=== PATIENT | male | born 2005 | race Hispanic/Latino ===

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

== ENCOUNTER 2023-01-21 13:28 | Emergency (ER) | payer SELFPAY ==
[2023-01-21 14:34] LABS: SARS-COV-2 RT PCR NEGATIVE (NEGATIVE)
--- NOTE | 2023-01-21 15:32 | ER ---
Nurse's Notes [facility] Name: Marquis Felton Jr Age: 17 yrs Sex: Male : 2005 Arrival Date: 01/21/2023 Time: 13:30 Bed 5 Private MD: Diagnosis: Acute pharyngitis, unspecified Presentation: 01/21 13:45 Chief complaint: Patient states: intermittent lightheadedness and body feeling hot that ss began "a couple of days ago.". Coronavirus screen: Client denies travel out of the [place] in the last 14 days. Ebola Screen: Patient denies exposure to infectious person. Patient denies travel to an Ebola-affected area in the 21 days before illness onset. Initial Sepsis Screen: Does the patient meet any 2 criteria? No. Patient's initial sepsis screen is negative. Does the patient have a suspected source of infection? No. Patient's initial sepsis screen is negative. Risk Assessment: Do you want to hurt yourself or someone else? Patient reports no desire to harm self or others. Onset of symptoms was January 18, 2023. 13:45 Method Of Arrival: Ambulatory ss 13:45 Acuity: CONCHITA 3 ss Historical: - Allergies: 13:46 No Known Allergies; ss - Home Meds: 13:46 None [Active]; ss - PMHx: 13:46 None; ss - PSHx: 13:46 None; ss - Immunization history:: Client reports having NOT received the Covid vaccine. - Social history:: Smoking status: Patient denies any tobacco usage or history of. Screenin:40 [facility] ED Fall Risk Assessment (Adult) Score/Fall Risk Level 0 - 2 = Low Risk ll1 Oriented to surroundings, Maintained a safe environment, Educated pt \\T\\ family on fall prevention, incl call for assistance when getting out of bed, Hourly rounding (assess needs \\T\\ fall precautionary measures) done. Abuse screen: Denies threats or abuse. Nutritional screening: No deficits noted. Tuberculosis screening: No symptoms or risk factors identified. Assessment: 13:46 General: Appears in no apparent distress. comfortable, Behavior is calm, cooperative, kc6 appropriate for age. Pain: Denies pain. Neuro: Pate Agitation-Sedation Scale (RASS): 0 - Alert and Calm Level of Consciousness is awake, alert, obeys commands, Oriented to person, place, time, situation, Appropriate for age Reports dizziness, lightheadedness. Cardiovascular: Capillary refill < 3 seconds. Respiratory: Airway is patent Trachea midline Respiratory effort is even, unlabored, Respiratory pattern is regular, symmetrical. GI: No signs and/or symptoms were reported involving the gastrointestinal system. : No signs and/or symptoms were reported regarding the genitourinary system. EENT: No signs and/or symptoms were reported regarding the EENT system. Derm: No signs and/or symptoms reported regarding the dermatologic system. Skin is intact, Skin is pink, warm \\T\\ dry. Musculoskeletal: No signs and/or symptoms reported regarding the musculoskeletal system. Circulation, motion, and sensation intact. Capillary refill < 3 seconds, Range of motion: intact in all extremities. 14:33 Reassessment: Patient appears in no apparent distress at this time. No changes from kc6 previously documented assessment. Patient and/or family updated on plan of care and expected duration. Pain level reassessed. Patient is alert, oriented x 3, equal unlabored respirations, skin warm/dry/pink. 15:25 Reassessment: Patient appears in no apparent distress at this time. No changes from kc6 previously documented assessment. Patient and/or family updated on plan of care and expected duration. Pain level reassessed. Patient is alert, oriented x 3, equal unlabored respirations, skin warm/dry/pink. Vital Signs: 13:45 BP 129 / 73; Pulse 70; Resp 15; Temp 97.9(TE); Pulse Ox 100% on R/A; Weight 99.79 kg; Height 5 ft. 5 in. (165.10 cm); 14:33 BP 122 / 71; Pulse 69; Resp 18 S; Pulse Ox 98% on R/A; kc6 15:25 BP 107 / 60; Pulse 69; Resp 19 S; Pulse Ox 99% on R/A; kc6 13:45 Body Mass Index 36.61 (99.79 kg, 165.10 cm) ED Course: 13:30 Patient arrived in ED. mr 13:32 Fredy Coulter PA is PHCP. jmm 13:33 Adonis Tsai MD is Attending Physician. jmm 13:39 Guerita Ordaz RN is Primary Nurse. ll1 13:40 Arm band placed on Patient placed in an exam room, on a stretcher. ll1 13:43 Kaitlin Hernandez, RN is Primary Nurse. kc6 13:46 Triage completed. ss 13:46 Patient has correct armband on for positive identification. Bed in low position. Call kc6 light in reach. Side rails up X 1. 13:51 Strep Sent. tm3 13:51 COVID-19/FLU A+B Sent. tm3 14:51 EKG done, by ED staff. tm3 15:55 No provider procedures requiring assistance completed. Patient did not have IV access kc6 during this emergency room visit. Administered Medications: No medications were administered Medication: 15:55 VIS not applicable for this client. kc6 Outcome: 15:31 Discharge ordered by . ivan 15:55 Discharged to home ambulatory. kc6 15:55 Condition: stable 15:55 Discharge instructions given to patient, Instructed on discharge instructions, follow up and referral plans. medication usage, Demonstrated understanding of instructions, follow-up care, medications, Prescriptions given X 1. 15:56 Patient left the ED. kc6 Signatures: Demian Jenkins tm3 Fredy Coulter PA PA jmm Rivera, Mary Shelby Hernandez, RN RN ss Guerita Ordaz RN RN ll1 Kaitlin Hernandez, RN RN kc6
--- NOTE | 2023-01-21 15:32 | EDPHYS ---
Physician Documentation [facility] Name: Marquis Felton Jr Age: 17 yrs Sex: Male : 2005 Arrival Date: 01/21/2023 Time: 13:30 Bed 5 Private MD: ED Physician Adonis Tsai HPI: 01/21 13:40 This 17 yrs old Male presents to ER via Ambulatory with complaints of m Dizziness. 13:40 Is a 17-year-old male with no chronic medical conditions presents emerged department jm with complaints of sore throat, fatigue, lightheadedness beginning today. Complains of generalized body aches. Denies vomiting, abdominal pain, chest pain, shortness of breath. Historical: - Allergies: 13:46 No Known Allergies; ss - Home Meds: 13:46 None [Active]; ss - PMHx: 13:46 None; ss - PSHx: 13:46 None; ss - Immunization history:: Client reports having NOT received the Covid vaccine. - Social history:: Smoking status: Patient denies any tobacco usage or history of. ROS: 13:40 Constitutional: Positive for body aches. jmm 13:40 ENT: Positive for sore throat. 13:40 All other systems are negative. Exam: 13:40 Constitutional: This is a well developed, well nourished patient who is awake, alert, jmm and in no acute distress. Head/Face: atraumatic. Eyes: EOMI, no conjunctival erythema appreciated 13:40 Neck: Trachea midline, Supple Chest/axilla: Normal chest wall appearance and motion. Cardiovascular: Regular rate and rhythm. No edema appreciated Respiratory: Normal respirations, no respiratory distress appreciated Abdomen/GI: Non distended Back: Normal ROM Skin: General appearance color normal MS/ Extremity: Moves all extremities, no obvious deformities appreciated, no edema noted to the lower extremities Neuro: Awake and alert Psych: Behavior is normal, Mood is normal, Patient is cooperative and pleasant 13:40 ENT: Posterior pharynx: erythema, that is mild. Vital Signs: 13:45 BP 129 / 73; Pulse 70; Resp 15; Temp 97.9(TE); Pulse Ox 100% on R/A; Weight 99.79 kg; ss Height 5 ft. 5 in. (165.10 cm); 14:33 BP 122 / 71; Pulse 69; Resp 18 S; Pulse Ox 98% on R/A; kc6 15:25 BP 107 / 60; Pulse 69; Resp 19 S; Pulse Ox 99% on R/A; kc6 13:45 Body Mass Index 36.61 (99.79 kg, 165.10 cm) ss MDM: 13:40 Patient medically screened. [facility] 15:29 Differential diagnosis: acute pharyngitis. Data reviewed: vital signs, nurses notes. [facility] 19:13 Counseling: I had a detailed discussion with the patient and/or guardian regarding: the [facility] historical points, exam findings, and any diagnostic results supporting the discharge/admit diagnosis, lab results, the need for outpatient follow up, to return to the emergency department if symptoms worsen or persist or if there are any questions or concerns that arise at home. 01/21 13:44 Order name: COVID-19/FLU A+B; Complete Time: 14:36 [facility] 01/21 13:44 Order name: Strep; Complete Time: 14:13 [facility] 01/21 14:08 Order name: Throat Culture [facility] 01/21 14:37 Order name: EKG - Nurse/Tech; Complete Time: 14:46 [facility] Administered Medications: No medications were administered Disposition: 16:31 Co-signature as Attending Physician, Adonis Tsai MD. rn Disposition Summary: 01/21/23 15:31 Discharge Ordered Location: Home [facility] Condition: Stable [facility] Diagnosis - Acute pharyngitis, unspecified [facility] Followup: [facility] - With: Private Physician - When: 2 - 3 days - Reason: Recheck today's complaints, Continuance of care, Re-evaluation by your physician Discharge Instructions: - Discharge Summary Sheet [facility] - Pharyngitis [facility] Forms: - Work release form [facility] - Medication Reconciliation Form [facility] - Thank You Letter [facility] - Antibiotic Education [facility] - Prescription Opioid Use [facility] Prescriptions: - Amoxicillin 875 mg Oral Tablet - take 1 tablet by ORAL route every 12 hours for 10 days; 20 tablet; Refills: 0, [facility] Product Selection Permitted Signatures: Dispatcher [employer] [facility] Fredy Coulter PA PA [facility] Adonis Tsai MD MD rn Smirch, Shelby, RN RN ss
[2023-01-21 15:59] VITALS: TEMP 97.9
[2023-01-21 16:02] VITALS: BP 107/60; O2SAT 99
--- NOTE | 2023-01-22 11:16 | EKG ---
Test Date: 2023-01-21 Test Time: 14:49:25 [place] Supervisor: TM MEASUREMENT RESULTS: Intervals: Rate: 64 RI: 140 QRSD: 80 QT: 374 QTc: 385 Mamou: P: 47 RI: 140 QRS: 34 T: -3 INTERPRETIVE STATEMENTS: Normal sinus rhythm Possible Inferior infarct, age undetermined Abnormal ECG No previous ECG available for comparison Electronically Signed On 01-22-23 11:15:05 ANALYTICAL LAB ANALYST by Cristóbal Grover
== END 2023-01-21 15:56 | disposition home or self-care (01) ==
LOC: ER 13:28
DX: J02.9 Acute pharyngitis, unspecified (principal)
CPT/HCPCS: 0240U; 87070; 87081; 93005

== ENCOUNTER 2023-10-22 17:32 | Emergency (ER) | payer SELFPAY ==
--- NOTE | 2023-10-22 18:45 | RAD REPORT ---
EXAM DESCRIPTION: CT - CTFBWCON CLINICAL HISTORY: FACIAL PAIN COMPARISON: No comparisons TECHNIQUE: Axial thin cut CT images of the face were obtained following intravenous administration o f 100 mL Isovue-300. Sagittal and coronal reconstruction images were generated and reviewed. All CT scans are performed using dose optimization technique as appropriate and may include automated exposure control or mA/KV adjustment according to patient size. FINDINGS: Asymmetric soft tissue swelling and fat stranding centered on the right lower jaw soft tis sues, extending deep to the superficial muscles of the face, and along the anterior margin of the mes enteric. Asymmetrically more pronounced right level 1 B lymph nodes, measuring up to 9 millimeter in short axis, likely reactive. No appreciable fluid collections or subperiosteal abscess. Unerupted posterior most right mandibular molar, without evidence of abnormal cortical defects or erosions of the mandible at that level. No green spicious periapical collections. No acute facial bone fracture is seen.The mandible is intact. Remainder of the soft tissues of the f leoncio are unremarkable. Infratemporal fossa and included intracranial structures and orbits are unremar kable. The globes and orbital contents are grossly unremarkable.The paranasal sinuses and mastoids are clear . IMPRESSION: Asymmetric soft tissue swelling and fat stranding adjacent to the right lower jaw buccal cortex, with mildly prominent right level 1 B lymph nodes, probably reactive. No appreciable fluid collections or subperiosteal abscess.
--- NOTE | 2023-10-22 18:55 | ER ---
Nurse's Notes [facility] Name: Marquis Felton Jr Age: 18 yrs Sex: Male : 2005 Arrival Date: 10/22/2023 Time: 17:32 Bed 12 Private MD: Diagnosis: Local infection of the skin and subcutaneous tissue, unspecified Presentation: 10/22 17:41 Chief complaint: Patient states: right jaw pain and swelling since Friday. Pt states "I aa5 can't really open my mouth because of my jaw and I haven't been able to eat much". Coronavirus screen: At this time, the client does not indicate any symptoms associated with coronavirus-19. Ebola Screen: Patient denies travel to an Ebola-affected area in the 21 days before illness onset. Initial Sepsis Screen: Does the patient meet any 2 criteria? No. Patient's initial sepsis screen is negative. Does the patient have a suspected source of infection? No. Patient's initial sepsis screen is negative. Risk Assessment: Do you want to hurt yourself or someone else? Patient reports no desire to harm self or others. Onset of symptoms was September 2023. 17:41 Acuity: CONCHITA 4 aa5 17:41 Method Of Arrival: Ambulatory aa5 Triage Assessment: 20:07 General: Appears in no apparent distress. comfortable, Behavior is calm, cooperative. cm10 Pain: Complains of pain in mouth. Neuro: No deficits noted. Level of Consciousness is awake, alert, obeys commands, Oriented to person, place, time, situation. Respiratory: No deficits noted. Airway is patent Respiratory effort is even, unlabored, Respiratory pattern is regular, symmetrical. Derm: No deficits noted. Skin is intact, Skin is pink, warm \\T\\ dry. Musculoskeletal: No deficits noted. No signs and/or symptoms reported regarding the musculoskeletal system. Range of motion: intact in all extremities. Historical: - Allergies: 17:41 No Known Allergies; aa5 - PMHx: 17:41 None; aa5 - PSHx: 17:41 None; aa5 - Immunization history:: Adult Immunizations unknown. - Social history:: Smoking status: Patient denies any tobacco usage or history of. Screenin:07 [facility] ED Fall Risk Assessment (Adult) History of falling in the last 3 months, cm10 including since admission No falls in past 3 months (0 pts) Confusion or Disorientation No (0 pts) Intoxicated or Sedated No (0 pts) Impaired Gait No (0 pts) Mobility Assist Device Used No (0 pt) Altered Elimination No (0 pt) Score/Fall Risk Level 0 - 2 = Low Risk Oriented to surroundings, Maintained a safe environment, Hourly rounding (assess needs \\T\\ fall precautionary measures) done. Abuse screen: Denies threats or abuse. Denies injuries from another. Nutritional screening: No deficits noted. Tuberculosis screening: No symptoms or risk factors identified. Assessment: 18:09 Reassessment: Patient and/or family updated on plan of care and expected duration. Pain ll1 level reassessed. Vital Signs: 17:41 BP 138 / 77; Pulse 78; Resp 16 S; Temp 98.2; Pulse Ox 100% on R/A; Weight 99.79 kg (R); aa5 Height 5 ft. 5 in. (R); 17:41 Body Mass Index 36.61 (99.79 kg, 165.1 cm) aa5 ED Course: 17:35 Patient arrived in ED. im 17:41 [facility]C [facility] kb 17:41 Jerry Kuhn MD is Attending Physician. kb 17:41 Triage completed. aa5 17:42 Arm band placed on. aa5 18:09 Inserted saline lock: 22 gauge in right antecubital area, using aseptic technique. ll1 18:16 Facial Bones W/ Con \\T\\ MPR CT In Process Unspecified. EDMS 19:13 Yenny Cali, RN is Primary Nurse. cm10 20:06 Patient has correct armband on for positive identification. Provided Education on: cm10 Follow-up process and procedures. . 20:06 No provider procedures requiring assistance completed. IV discontinued, intact, cm10 bleeding controlled, No redness/swelling at site. Pressure dressing applied. Administered Medications: 19:32 Drug: Rocephin IV 1 grams IV at calculated rate once; Given slow IV push per pharmacy cm10 instructions Route: IV; Rate: calculated rate; Site: right antecubital; 20:06 Follow up: Response: No adverse reaction; IV Status: Completed infusion; IV Intake: [id number] Medication: 20:08 VIS not applicable for this client. cm10 Intake: 20:06 IV: 50ml; Total: 50ml. cm10 Outcome: 18:55 Discharge ordered by . valentina 20:08 Discharged to home ambulatory, with family, cm10 20:08 Condition: good 20:08 Discharge instructions given to patient, Instructed on discharge instructions, follow up and referral plans. medication usage, Demonstrated understanding of instructions, follow-up care, medications, Prescriptions given X 1, 20:08 Patient left the ED. cm10 Signatures: Dispatcher [employer] EDMS Francesca Voss, ROYER-Michael LINTON-Miladys Salter, RN RN aa5 Guerita Ordaz RN RN ll1 Betsy Landry Clarissa, RN RN cm10 Corrections: (The following items were deleted from the chart) 17:43 17:41 Chief complaint: Patient states: right jaw pain and swelling. Pt states "I can't aa5 really open my mouth because of my jaw and I haven't been able to eat much" aa5
--- NOTE | 2023-10-22 18:55 | EDPHYS ---
Physician Documentation [facility] Name: Marquis Felton Jr Age: 18 yrs Sex: Male : 2005 Arrival Date: 10/22/2023 Time: 17:32 Bed 12 Private MD: ED Physician Jerry Kuhn HPI: 10/22 18:54 This 18 yrs old Male presents to ER via Ambulatory with complaints of Jaw Pain kb - swelling. 18:54 Patient is a 18-year-old male with no medical history presents for jaw pain on the kb right side for 4 days. Reports pain with opening mouth. Denies fever, toothache, nausea, vomiting, sore throat. Historical: - Allergies: 17:41 No Known Allergies; aa5 - PMHx: 17:41 None; aa5 - PSHx: 17:41 None; aa5 - Immunization history:: Adult Immunizations unknown. - Social history:: Smoking status: Patient denies any tobacco usage or history of. ROS: 18:51 Constitutional: Negative for fever, chills, and weight loss, kb 18:51 ENT: Positive for jaw pain, 18:51 All other systems are negative, Exam: 18:51 Constitutional: This is a well developed, well nourished patient who is awake, alert, kb and in no acute distress. Head/Face: Normocephalic, atraumatic. ENT: Moist Mucous membranes Cardiovascular: Regular rate Respiratory: Respirations even and unlabored. No increased work of breathing. Talking in full sentences Abdomen/GI: Soft, non-tender. No distention Skin: Warm, dry with normal turgor. Normal color. MS/ Extremity: Pulses equal, no cyanosis. Neurovascular intact. Full, normal range of motion. Neuro: Awake and alert, GCS 15, oriented to person, place, time, and situation. Moves all extremities. Normal gait. 18:51 ENT: pain upon palpation and movement of right mandible, no erythema, swelling, warmth or abscess appreciated. Vital Signs: 17:41 BP 138 / 77; Pulse 78; Resp 16 S; Temp 98.2; Pulse Ox 100% on R/A; Weight 99.79 kg (R); aa5 Height 5 ft. 5 in. (R); 17:41 Body Mass Index 36.61 (99.79 kg, 165.1 cm) aa5 MDM: 17:41 Patient medically screened. kb 18:52 Differential diagnosis: fracture, cellulitis, abscess. Data reviewed: vital signs, kb nurses notes. Counseling: I had a detailed discussion with the patient and/or guardian regarding the historical points, exam findings, and any diagnostic results supporting the discharge/admit diagnosis, radiology results, the need for outpatient follow up, a family practitioner, to return to the emergency department if symptoms worsen or persist or if there are any questions or concerns that arise at home. 10/22 17:46 Order name: Facial Bones W/ Con \T\ MPR CT; Complete Time: 18:49 kb 10/22 17:46 Order name: IV Start; Complete Time: 18:12 kb Administered Medications: 19:32 Drug: Rocephin IV 1 grams IV at calculated rate once; Given slow IV push per pharmacy cm10 instructions Route: IV; Rate: calculated rate; Site: right antecubital; 20:06 Follow up: Response: No adverse reaction; IV Status: Completed infusion; IV Intake: [id number] Disposition Summary: 10/22/23 18:55 Discharge Ordered Notes: Location: Home kb Condition: Stable kb Diagnosis - Local infection of the skin and subcutaneous tissue, unspecified kb Followup: kb - With: Emergency Department - When: As needed - Reason: Worsening of condition Followup: kb - With: Private Physician - When: 2 - 3 days - Reason: Recheck today's complaints, Continuance of care, Re-evaluation by your physician Discharge Instructions: - Discharge Summary Sheet kb - Cellulitis, Adult, [id number] kb Forms: - Medication Reconciliation Form kb - Thank You Letter kb - Antibiotic Education kb - Prescription Opioid Use kb - Patient Portal Instructions kb - Leadership Thank You Letter kb Prescriptions: - Augmentin 875-125 mg Oral Tablet - take 1 tablet ORAL route every 12 hours for 10 days; 20 tablet; Refills: 0, kb Product Selection Permitted Signatures: Dispatcher [employer] Francesca Jalloh FNP-C FNP-Ckb Calderon, Audri, RN RN aa5 Yenny Cali RN RN cm10
[2023-10-22] MEDS ORDERED: CEFTRIAXONE 1000 MG/VIAL ONE (19:41)
[2023-10-22] MEDS ORDERED: NA CHLORIDE 0.9% 50 ML ONE (19:41)
[2023-10-22 20:21] VITALS: BP 138/77; TEMP 98.2; O2SAT 100
== END 2023-10-22 20:08 | disposition home or self-care (01) ==
LOC: ER 17:32
DX: L08.9 Local infection of the skin and subcutaneous tissue, unspecified (principal)
CPT/HCPCS: 70487; 76377; 96365; 99284; J0696; Q9967